=== PATIENT | female | born 1970 | race Two or more races ===

== ENCOUNTER 2018-07-05 23:00 | Emergency (ER) | payer MEDICAID, OTHER ==
[~2018-07-05] VITALS: Ht 162.6 cm; Wt 52.2 kg
--- NOTE | 2018-07-05 23:30 | NUR ---
Pt came in from [facility] reporting a hemoglobin level of 6.9. Pt has hx of anemia, denies receiving any blood transfusion. Pt is A, O/4, ambulates by herself, on RA, in no apparent distress.
--- NOTE | 2018-07-05 23:35 | NUR ---
EKG in progress
--- NOTE | 2018-07-05 23:40 | NUR ---
HL 20g inserted to [facility], labs drawn and sent to lab.
--- NOTE | 2018-07-06 | NUR ---
Pt signed consent for BT
[2018-07-06 00:06] LABS: BASOPHILS % (AUTO) 0.8 % (0.0-2.0); EOSINOPHILS % (AUTO) 1.9 % (0.0-6.0); HEMATOCRIT 24 % (33-45); HEMOGLOBIN 7.1 g/dL (11.5-14.8); LYMPHOCYTES # (AUTO) 1.5 /CMM (0.8-4.8); LYMPHOCYTES % (AUTO) 26.4 % (20.0-44.0); MEAN CORPUSCULAR HGB CONC 30 g/dl (31.0-36.0); MEAN CORPUSCULAR VOLUME 75 fL (82-100); MONOCYTES # (AUTO) 0.5 /CMM (0.1-1.30); MONOCYTES % (AUTO) 8.5 % (2.0-12.0); NEUTROPHILS # (AUTO) 3.5 /CMM (1.8-8.9); NEUTROPHILS % (AUTO) 62.4 % (43.0-81.0); PLATELET COUNT (AUTO) 428 /CMM (150-450); RED BLOOD CELL COUNT(AUTO) 3.19 MIL/uL (4.0-5.2); WHITE BLOOD COUNT (AUTO) 5.5 K/uL (4.3-11.0)
[2018-07-06 00:17] LABS: CALCIUM, SERUM 8.7 mg/dL (8.5-10.1); CREATININE 0.9 mg/dL (0.6-1.3); POTASSIUM 3.5 mmol/L (3.5-5.1)
[2018-07-06 00:24] LABS: ALBUMIN 3.6 g/dL (3.4-5.0); BILIRUBIN,DIRECT 0.1 mg/dL (0.0-0.2); BILIRUBIN,TOTAL 0.1 mg/dL (0.2-1.0); TOTAL PROTEIN, SERUM 7.2 g/dL (6.4-8.2)
--- NOTE | 2018-07-06 01:50 | NUR ---
PRBC 1 unit transfusion started, 20g LAC Pre-transfusion VS @ 0135: BP = 106/65, HR = 67, RR= 18, T=98.0, O2 Qpd=175% Intransfusion VS @ 0150 : BP = 93/61, HR = 70, RR = 18, T = 98.0, )2 Sat = 100%
--- NOTE | 2018-07-06 02:30 | NUR ---
Pt is sleeping but arousable. BT ongoing, no adverse reaction noted, VSS
--- NOTE | 2018-07-06 03:35 | NUR ---
1 u PRBC completed, pt tolerated transfusion, no adverse reaction noted, VSS
--- NOTE | 2018-07-06 04:15 | NUR ---
Pt resting comfortably, no distress noted post BT
[2018-07-06 04:31] VITALS: BP 92/59
== END 2018-07-06 04:32 | disposition home or self-care (01) ==
LOC: ER 23:00
DX: D50.9 Iron deficiency anemia, unspecified (principal); N93.8 Other specified abnormal uterine and vaginal bleeding
CPT/HCPCS: 36415; 80048-TC; 80076-TC; 85025-TC; 85730-TC; 86850-TC; 86921-TC; J7030; P9016-BL